=== PATIENT | male | born 1995 | race Caucasian/White ===

== ENCOUNTER → 2017-08-13 | Emergency (ER) | payer SELFPAY ==
[~2017-08-13] VITALS: Ht 175.3 cm; Wt 69.1 kg
[~2017-08-13] MED LIST: CEPHALEXIN500 M1 PO; NKA; UNABLE
[2017-08-13 09:56] VITALS: BP 150/65; PULSE 58; TEMP 97
== END ==
LOC: COL.ER 09:51
DX: S61.210A Laceration without foreign body of right index finger without damage to nail, initial encounter (principal); Z23 Encounter for immunization; W26.0XXA Contact with knife, initial encounter; Y92.69 Other specified industrial and construction area as the place of occurrence of the external cause

== ENCOUNTER 2017-08-23 09:30 | Emergency (ER) | payer SELFPAY ==
[2017-08-23 09:40] VITALS: BP 123/57; PULSE 59; TEMP 98.3
== END 2017-08-23 10:00 | disposition home or self-care (01) ==
LOC: COL.ER 09:30
DX: S61.210D Laceration without foreign body of right index finger without damage to nail, subsequent encounter (principal); W26.8XXD Contact with other sharp object(s), not elsewhere classified, subsequent encounter